=== PATIENT | female | born 1965 | race Caucasian/White ===

== ENCOUNTER 2021-02-20 05:38 | Outpatient (CLI) | payer MEDICAID ==
[~2021-02-20] VITALS: Ht 165.1 cm; Wt 101.2 kg
[2021-02-20] MEDS ORDERED: LISI10TA25 PO (08:47)
[2021-02-20] MEDS ORDERED: ESLI800T PO (08:47)
[2021-02-20] MEDS ORDERED: ARIP15TA PO (08:47)
[2021-02-20] MEDS ORDERED: OMEP40CA6 PO (08:47)
[2021-02-20] MEDS ORDERED: DULO60CA59 PO (08:47)
[2021-02-20] MEDS ORDERED: SIMV20TA26 PO (08:47)
[2021-02-20] MEDS ORDERED: DOCU-26 PO (08:47)
[2021-02-20] MEDS ORDERED: NAPR-915 PO (08:47)
[2021-02-20] MEDS ORDERED: FURO20TA4 PO (08:47)
[2021-02-20] MEDS ORDERED: GABA300S2 PO (08:47)
[2021-02-20] MEDS ORDERED: ZONI100C29 PO (08:47)
[2021-02-20] MEDS ORDERED: LEVO137C4 PO (08:47)
[2021-02-20] MEDS ORDERED: DULO30CA49 PO (08:47)
[2021-02-20] MEDS ORDERED: METF-478 PO (08:47)
[2021-02-20] MEDS ORDERED: TIZA4CAP8 PO (08:47)
[2021-02-20] MEDS ORDERED: FLUT9.9S NS (08:50)
[2021-02-20] MEDS ORDERED: FLUT1BLS3 IH (08:50)
[2021-02-20] MEDS ORDERED: RT-ALBUINH INH (08:50)
[2021-02-20] MEDS ORDERED: NAPR500T8 PO (08:56)
[2021-02-20] MEDS ORDERED: ACET325T38 PO (08:56)
[2021-02-20] MEDS ORDERED: NF-NACL1GT PO (08:56)
== END 2021-02-20 09:16 | disposition home or self-care (01) ==
LOC: PREOP 05:38
PROVIDERS: ATTEND Otolaryngology Otolaryngology/Facial Plastic Surgery
DX: Z01.818 Encounter for other preprocedural examination (principal)

== ENCOUNTER 2021-02-22 05:58 | Day surgery (SDC) | payer MEDICAID ==
[~2021-02-22] VITALS: Ht 165.1 cm; Wt 101.2 kg
[2021-02-22] VITALS (9 sets, daily range): BP systolic 110–149; BP diastolic 73–90
[~2021-02-22 05:58] MED LIST: ACET325T38 PO; ARIP15TA PO; DOCU-26 PO; DULO30CA49 PO; DULO60CA59 PO; ESLI800T PO; FLUT1BLS3 IH; FLUT9.9S NS; FURO20TA4 PO; GABA300S2 PO; LEVO137C4 PO; LISI10TA25 PO; METF-478 PO; NAPR-915 PO; NAPR500T8 PO; NF-NACL1GT PO; OMEP40CA6 PO; RT-ALBUINH INH; SIMV20TA26 PO; TIZA4CAP8 PO; ZONI100C29 PO
--- OUTSIDE RECORDS SUMMARY | 2021-02-22 06:01 | XMS REPORT | Clinical Summary ---
Author Author [facility] Organization [facility] Address Unknown Phone Unavailable Care Team Providers Care Hardware Engineer Name Role Phone PCP Unavailable Allergies Not on File Medications Not on file Active Problems Not on file Encounters Care Team Description Date Type Specialty Tonio Reich MD [facility], Transcribed Orders Illness, unspecified; Encounter for preprocedural laboratory examination 02/20/2021 Lab Requisition Lab from Last 3 Months Social History Date Tobacco Use Types Packs/Day Years Used Never Assessed Sex Assigned at Date Recorded Not on file Last Filed Vital Signs Not on file Plan of Treatment Not on file Procedures Comments Procedure Name Priority Date/Time Associated Diag nosis SARS-COV-2 (COVID-19) Today 02/19/2021 Illness, unspecified 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 Performing Organization Address City/State/ZIP Code [place] Number [id number] [place], [place] [address] from Last 3 Months
--- OUTSIDE RECORDS SUMMARY | 2021-02-22 06:01 | XMS REPORT | Encounter Summary ---
Author Author [facility] Organization [facility] Address Unknown Phone Unavailable Care Team Providers Care Battery Container Inspector Name Role Phone PCP Unavailable Encounter Details Care Team Description Date Type Department Tonio Reich MD [address] [facility] [address] [place] [address] [facility], Transcribed Orders Admitting Provider Resource Illness, unspecified; Encounter for preprocedural laboratory examination 02/20/2021 Lab Requisition [facility] [address] [place], [place] [id number] Social History Date Tobacco Use Types Packs/Day Years Used Never Assessed Sex Assigned at Date Recorded Not on file documented as of this encounter Plan of Treatment Not on filedocumented as of this encounter Procedures Comments Procedure Name Priority Date/Time Associated Diag nosis SARS-COV-2 (COVID-19) Today 02/19/2021 Illness, unspecified 10:20 AM 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 Performing Organization Address City/State/ZIP Code [place] [facility] Number [id number] [place], [place] [address] documented in this encounter Visit Diagnoses Diagnosis Illness, unspecified Encounter for preprocedural laboratory examination documented in this encounter Additional Health Concerns Onset Date Resolved Time Infection Last Indicated 02/20/2021 02/20/2021 7:08 PM COMPLETION SUPERVISOR COVID-19 PUI 02/19/2021 documented as of this encounter
[2021-02-22] MEDS ORDERED: LACTATED RINGERS 1,000 ML IV PRN (06:15)
[2021-02-22] MEDS ORDERED: ROCURONIUM 10 MG/ML 5 ML SYRINGE IV ONE (06:49)
[2021-02-22] MEDS ORDERED: MIDAZOLAM 2 MG/2 ML (VERSED) VIAL ONE (06:49)
[2021-02-22] MEDS ORDERED: fentaNYL INJ 100 MCG/2 ML AMP ONE (06:49)
[2021-02-22] MEDS ORDERED: proPOfol 200 MG/20 ML (DIPRIVAN) VIAL IV ONE (06:49)
[2021-02-22] MEDS ORDERED: LIDOCAINE PF 2% 5 ML (XYLOCAINE) VIAL ONE (06:49)
--- NOTE | 2021-02-22 07:18 | Progress Note-Pre Operative ---
Pre-Operative Progress Note H&P Reviewed The H&P was reviewed, patient examined and no changes noted. Date Seen by Provider: Feb 22, 2021 Time Seen by Provider: 07:30 Date H&P Reviewed: Feb 22, 2021 Time H&P Reviewed: 07:30 Pre-Operative Diagnosis: Laryngeal Lesion MAYKEL BAUTISTA MD Feb 22, 2021 07:18
[2021-02-22] MEDS ORDERED: LIDOCAINE/EPI 1%-1:100,000 (XYLOCAINE) 20ML ONE (07:34)
--- NOTE | 2021-02-22 08:50 | Progress Note-Post Operative ---
Post-Operative Progess Note Surgeon (s)/Managed Care Specialist (s) Surgeon MAYKEL BAUTISTA MD Managed Care Specialist n/a Pre-Operative Diagnosis Laryngeal Lesion Post-Operative Diagnosis same Post-Op Procedure Note Date of Procedure: Feb 22, 2021 Name of Procedure Performed: Direct Laryngsocpy with Biopsy of Left Posterior Vocal Cord Description & Findings Description and Findings: n/a Anesthesia Type get Estimated Blood Loss minimal Packing none. Specimen(s) collected/removed left vocal cord biopsy MAYKEL BAUTISTA MD Feb 22, 2021 08:50
[2021-02-22] MEDS ORDERED: NEOSTIGMINE 3 MG/3 ML VIAL ONE (08:52)
[2021-02-22] MEDS ORDERED: GLYCOPYRROLATE 0.2 MG/ML (ROBINUL) 2 ML VIAL ONE (08:52)
[2021-02-22] MEDS ORDERED: ONDANSETRON 4 MG/2 ML (SDV) Z0FRAN ONE (08:53)
[2021-02-22] MEDS ORDERED: SEVOFLURANE (ULTANE) 15 ML INHAL SOLN ONE (08:55)
[2021-02-22] MEDS ORDERED: PROMETHAZINE INJ 25 MG/ML (PHENERGAN) AMP IV PRN (09:00)
--- NOTE | 2021-02-22 09:22 | Anesthesia-General Post-Op ---
General Patient Condition Mental Status/LOC: Same as Preop Cardiovascular: Satisfactory Nausea/Vomiting: Absent Respiratory: Satisfactory Pain: Controlled Complications: Absent Post Op Complications Complications None Follow Up Care/Instructions Patient Instructions None needed. Anesthesia/Patient Condition Patient Condition Patient is doing well, no complaints, stable vital signs, no apparent adverse anesthesia problems. No complications reported per nursing. BUTCH VAZQUEZ CRNA Feb 22, 2021 09:22
== END 2021-02-22 11:00 ==
LOC: SDC 05:58
PROVIDERS: ATTEND Otolaryngology Otolaryngology/Facial Plastic Surgery
DX: J38.7 Other diseases of larynx (principal); J38.3 Other diseases of vocal cords; Z79.890 Hormone replacement therapy; Z79.899 Other long term (current) drug therapy; F17.210 Nicotine dependence, cigarettes, uncomplicated
CPT/HCPCS: 87081; 88305; 88312